=== PATIENT | female | born 1990 | race Caucasian/White ===

== ENCOUNTER 2020-01-07 09:09 | Inpatient (IN) | payer BC ==
[2020-01-07] VITALS (19 sets, daily range): BP systolic 127–144; BP diastolic 40–84; PULSE 65–88; TEMP 98.1–98.7
[~2020-01-07] VITALS: Ht 162.7 cm; Wt 115.0 kg
[~2020-01-07 09:09] MED LIST: AMOXICILLIN 8751 TAB PO; MOTRIN 800800 MG/TAB PO; NO HOME MEDICATIONS; NORCO 325 MG-51 TAB PO; PERCOCET 325 MG1 TA2 PO; PRENATAL1 TA7 PO; PROFERRIN ES12 MG PO; PROMETHAZINE V473 M2 PO; VALIUM 5MG T5 MG/TAB PO; ZITHROMAX Z PA250 MG PO; [UNRECOGNIZED DRUG - OTHER]
--- NOTE | 2020-01-07 09:15 | NUR ---
Patient ambulatory to LR5 with spouse, changed into gown, FHR/TOCO monitors placed and explained. Patient states that she has been rosa 0200 am. Denies any leaking of fluid/vaginal bleeding/decreased movement. Assessment completed and questions answered.
[2020-01-07] MEDS ORDERED: PRENATAL TABLET PO (09:29)
[2020-01-07] MEDS ORDERED: LEVOXYL0.1 MG PO (09:30)
[2020-01-07] MEDS ORDERED: TUMS ULTRA ST1000 MG PO (09:30)
--- NOTE | 2020-01-07 09:40 | NUR ---
Dr. Martin at nurses station and updated on patient. See physician notification. Physician reviewing FHR strip and orders to watch patient longer until any further orders. 1010: Dr. Martin at bedside and discussing the plan for and patient agrees with plan of care. 1015: IV started per Lyle ESPINAL, blood drawn and to lab, LR infusing. Consents gone over and signed/ packet given/plan of care discussed. Patient prepped for .
--- NOTE | 2020-01-07 09:40 | NUR ---
FHR baseline 135-140bpm and subtle late deceleration noted after contraction and returning to baseline. 1015: FHR tracing moderate variability with recurrent late decelerations and Dr. Martin at nurses station reviewing FHR strip and no new orders given. 1102: Patient off monitor to void. 1150: Rita LINTON at bedside discussing plan and risk factors. 1155: Patient off monitor and ambulates to OR.
[2020-01-07 10:32] LABS: BASO % 0.2 % (0.0-2.0); EOS # 0.1 (0.0-0.7); EOS % 0.9 % (0-4.0); GRAN # 8.1 (1.4-6.5); GRAN % 71.7 % (42.2-75.2); HEMOGLOBIN 11.5 g/dl (12.5-16.0); LYMPH # 2.4 (1.2-3.4); MEAN CELL VOLUME 82 fl (80.0-100.0); MEAN CORPUSCULAR HEMOGLOBIN 26 pg (27.0-31.0); MEAN CORPUSCULAR HGB CONC 31 g/dl (33.0-37.0); MEAN PLATELET VOLUME 10.5 fl (7.4-10.4); MONO # 0.6 (0.1-0.6); MONO % 5.7 % (1.7-9.3); PLATELET COUNT 186 K/mm3 (130-400); RED BLOOD COUNT 4.49 M/mm3 (4.10-5.30); REDCELL DISTRIBUTION WIDTH-CV 15.8 % (11.5-14.5)
[2020-01-08 00:22] VITALS: BP 138/58; PULSE 59; TEMP 97.9
[2020-01-08 05:30] VITALS: BP 94/49; PULSE 62; TEMP 97.7
[2020-01-08 07:27] VITALS: BP 120/58; PULSE 68; TEMP 97.6
[2020-01-08] MEDS ORDERED: IBU600 MG PO (07:40)
[2020-01-08] MEDS ORDERED: PERCOCET 325 MG1 TA2 PO (07:41)
--- NOTE | 2020-01-08 09:08 | NUR ---
Initial visit; Parents thanked Special Tax Auditor for offering congratulations and God's blessings for the of their daughter. Special Tax Auditor thanked family for choosing [facility].
[2020-01-08 12:39] VITALS: BP 122/61; PULSE 72
[2020-01-08 19:30] VITALS: BP 123/57; PULSE 77; TEMP 98.4
[2020-01-09 07:26] VITALS: BP 116/68; PULSE 77; TEMP 97.6
== END 2020-01-09 18:05 | disposition home or self-care (01) | DRG 788 ==
LOC: LDRO 09:09 → LDR 10:15 → OB 12:43
PROVIDERS: Obstetrics & Gynecology; ADMIT Student in an Organized Health Care Education/Training Program
PROC: 10D00Z1 Extraction of Products of Conception, Low, Open Approach (ICD-10-PCS; principal; 2020-01-07)
DX: O34.211 Maternal care for low transverse scar from previous cesarean delivery (principal); Z37.0 Single live birth; O99.284 Endocrine, nutritional and metabolic diseases complicating childbirth; E03.9 Hypothyroidism, unspecified; O99.52 Diseases of the respiratory system complicating childbirth; J45.909 Unspecified asthma, uncomplicated; O99.62 Diseases of the digestive system complicating childbirth; K21.9 Gastro-esophageal reflux disease without esophagitis; O99.214 Obesity complicating childbirth; E66.9 Obesity, unspecified; Z3A.38 38 weeks gestation of pregnancy
CPT/HCPCS: J0690; J1100; J1885; J2405; J2590; J7120